=== PATIENT | male | born 1945 | race Caucasian/White ===

== ENCOUNTER → 2021-11-23 | Outpatient (CLI) | payer MEDICARE, SELFPAY ==
--- NOTE | 2021-11-23 07:41 | US_ITS ---
STUDY: ABDOMINAL ULTRASOUND REASON FOR EXAM: Male, 76 years old. Epigastric pain. TECHNIQUE: Transabdominal ultrasound was performed with real-time and static sierra scale imaging. TECHNICAL QUALITY: Adequate. COMPARISON: None. FINDINGS: Liver: The liver measures 14.1 cm. There is normal echogenicity of the liver. The bile ducts are within normal limits. There is hepatic color flow. The direction of portal flow is hepatopetal. There is no demonstrated mass lesion. Gallbladder: Normal distended gallbladder. The gallbladder wall measures 1.1 mm. There is a negative sonographic Jimenez''s sign. There is no pericholecystic fluid. There are no gallstones. Common Bile Duct (C.B.D.): The common bile duct measures 7.2 mm. Pancreas: Normal size of the head, body and tail of the pancreas. There is normal echogenicity of the pancreas. There is no demonstrated pancreatic mass or cyst. Spleen: Normal size of the spleen. The spleen measures 8.6 cm. Right Kidney: Normal size of the right kidney. The right kidney measures 8.5 cm. Normal renal cortex. The right cortex measures 1.0 cm. There is no demonstrated renal mass or cyst. There is no right hydronephrosis. Left Kidney: Normal size of the left kidney. The left kidney measures 8.7 cm. Normal renal cortex. The left cortex measures 1.4 cm. There is no demonstrated renal mass or cyst. There is no left hydronephrosis. Aorta: Atherosclerotic changes of the aorta without aneurysm. I.V.C.: The IVC is patent. There is no ascites. In the left lower quadrant, adjacent to the umbilicus, is a 3.2 x 4.0 x 2.7 cm hypoechoic focus with through transmission. There is evidence of peripheral and internal blood flow. Along its posteroinferior margin, there is 1.7 x 1.6 x 1.1 cm cyst. A US/Abdomen Complete IMPRESSION: 1. Normal abdominal ultrasound examination. 2. Incidental finding of at least partially cystic mass in the left lower quadrant mesenteric fat of uncertain etiology. Follow-up with contrast CT is recommended. Electronically Signed: Marvin Dover DO at 16:36 EDT ,
== END | disposition home or self-care (01) ==
PROVIDERS: PCP Student in an Organized Health Care Education/Training Program
DX: R10.13 Epigastric pain (principal)
CPT/HCPCS: 76700

== ENCOUNTER → 2021-11-25 | Outpatient (CLI) | payer MEDICARE, SELFPAY ==
--- NOTE | 2021-11-25 08:02 | CT_ITS ---
EXAM: CT LEFT UPPER EXTREMITY WITHOUT INTRAVENOUS CONTRAST, SHOULDER CLINICAL INDICATION: LEFT SHOULDER OSTEOARTHRITIS TECHNIQUE: Helically acquired images were obtained of the left shoulder without intravenous contrast. 2-D reformats were performed by the technologist. CTDIvol = ( 22.11 ) mGy, DLP = ( 530.18 ) mGycm This CT exam was performed using one or more of the following dose reduction techniques: automated exposure control, adjustment of the mA and/or kV according to patient size, and/or use of iterative reconstruction technique. This report was created using Doorman report Insightera technology. COMPARISON: None. FINDINGS: Moderate centrilobular emphysema. No consolidation, pleural effusion or pneumothorax. End stage osteoarthrosis involving the left glenohumeral joint. Superior subluxation humeral head relative to the glenoid with marked narrowing of the subacromial space raises concern for rotator cuff tearing. This can be better assessed with MRI. No significant arthritic changes of the left acromioclavicular joint. No acute or healing fracture or malalignment No unusual lytic or sclerotic lesions of bone. No soft tissue hemorrhage or hematoma. CT/Extremity Upper without Contra IMPRESSION: End-stage left glenohumeral joint osteoarthrosis. Electronically Signed: Gustavo Steven MD at 4:10 EDT ,
== END | disposition home or self-care (01) ==
PROVIDERS: PCP Student in an Organized Health Care Education/Training Program; Referring Provider Student in an Organized Health Care Education/Training Program; Visit Provider Student in an Organized Health Care Education/Training Program
DX: M19.112 Post-traumatic osteoarthritis, left shoulder (principal); M25.512 Pain in left shoulder
CPT/HCPCS: 73200

== ENCOUNTER 2021-12-16 12:43 | Observation (INO) | payer MEDICARE, SELFPAY ==
[2021-12-06 11:26] LABS: Absolute Lymphocyte Count 3.24 X10^3/uL (0.83-4.51); Absolute Neutrophil Count 5.6 X10^3/uL (2.0-7.7); Basophil# 0.07 X10^3/uL; Basophil% 0.7 % (0-1); Eosinophil# 0.13 X10^3/uL; Eosinophils% 1.3 % (0-5); Hematocrit 42.2 % (40-54); Hemoglobin 13.9 g/dL (13.0-16.5); Lymphocyte # 3.24 X10^3/ul (0.83-4.51); Lymphocyte % 33.2 % (19-41); Mean Corp Hgb Conc 32.9 g/dL (32-36); Mean Corpuscular Hgb 34.2 pg (27.0-32.0); Mean Corpuscular Volume 103.7 fL (80-94); Mean Platelet Vol. 9.7 fl (6.2-12.0); Monocyte# 0.66 X10^3/uL; Monocyte% 6.8 % (0-10); NRBC Flagged by Analyzer 0 % (0-5); Neutrophil # 5.63 X10^3/uL (2.7-7.7); Neutrophil % 57.7 % (47-70); Platelet Count 250 K/mm3 (150-450); RBC Distribution Width CV 12.5 % (11.6-14.6); RBC Distribution Width SD 48.2 fl (35.1-43.9); Red Blood Count 4.07 M/mm3 (4.6-6.2); White Blood Count 9.8 K/mm3 (4.4-11.0)
[2021-12-06 11:59] LABS: AST(SGOT) 17 U/L (15-37); Alanine Aminotransfer ALT/SGPT 23 U/L (16-61); Albumin, Serum 3.8 g/dL (3.2-5.0); Alkaline Phosphatase 90 U/L (45-117); Bilirubin, Direct 0.21 mg/dL (0.00-0.30); Globulin 3.6 g/dL (2.2-4.2); International Normalized Ratio 1.1; Magnesium 2.1 mg/dL (1.6-2.6); Protein, Total 7.4 g/dL (6.4-8.2); Prothrombin Time (Protime)PT. 14.2 SECONDS (11.7-14.9)
[2021-12-06 12:00] LABS: Anion Gap 8 (5-15); BUN 14 mg/dL (7-18); BUN/Creat Ratio 11.3 RATIO (10-20); Calcium,Total 9.4 mg/dL (8.5-10.1); Chloride 106 mmol/L (98-107); Creatinine, Serum 1.24 mg/dL (0.70-1.30); EST Glomerular Filtration Rate 60 mL/min (>60); Est Glom Filt Rate - Afr Amer 73 mL/min (>60); Glucose 127 mg/dL (74-106); Partial Thromboplast Time 36.1 Seconds (24.1-36.2); Potassium 3.9 mmol/L (3.5-5.1); Sodium Level 143 mmol/L (136-145)
[2021-12-16] VITALS (20 sets, daily range): BP systolic 112–147; BP diastolic 70–96; PULSE 75–101; RESP 14–22; TEMP 36.2–37.2; O2SAT 91–98; BMI 25.2
[2021-12-16] MEDS: Acetaminophen 500 MG Tablet 1000 MG PO ×3 (07:51→22:13)
[2021-12-16] MEDS: Gabapentin 600 MG Tablet PO (07:51)
[2021-12-16] MEDS: Lactated Ringers 1,000 ML 999 ML IV (07:52)
[2021-12-16] MEDS: Ipratropium/Albuterol Sulfate 3 ML AMPUL.NEB INHALATION (07:58)
[2021-12-16] MEDS: Magnesium 1 GM over 15 mins IV (08:01)
[2021-12-16 08:15] LABS: Bedside Glucose 68 mg/dL (74-106)
--- NOTE | 2021-12-16 09:45 | BON_PTH ---
PATIENT: NENITA JIMENEZ LOC: MS3 U#:[id number] AGE/SX: 76/M [place] [facility] [place]16/[address]: Dr. Francisco J Sarmiento DO : 1945 BED: 1 DIS: 12/17/2021 SPEC #: [id number] RECD: 12/16/21 16:22 STATUS: ITALIA REQ #: [id number] BETO: 12/16/21 09:[address]: Cristian Garrison DEPT: SURGICAL PATHOLOGY RECD BY: Diane Cooney ENTERED: 12/17/21 07:54 SP TYPE: Bone OTHR DR: DO Dr. Francisco J Guzman DO Dr. Nicholas Spittle, DO Tissues: Humerus, NOS Procedures: Decalcification bone/plaque Surgery Specimen Level IV Comments: @ Ordering doctor for DEC edited from to @ link NOLAN at 12/17/21 1239 @ Ordering doctor for SUIV edited from to @ link NOLAN at 12/17/21 1239 @ Submitting doctor edited from to @ link NOLAN at 12/17/21 1239 HEADER OPERATION: ERAS, total shoulder replacement, reverse PRE-OP DIAGNOSIS: Osteoarthritis left shoulder TISSUE SUBMITTED: Left humeral head MICROSCOPIC DIAGNOSIS Left humeral head, total shoulder replacement: Humeral head with degenerative osteoarthritic changes. /SJ 12/22/21 MICROSCOPIC DESCRIPTION Slides are reviewed. GROSS DESCRIPTION Received is one container labeled with the patient's name and designated left humeral head. The specimen consists of a humeral head measuring 5.5 x 5 x 2 cm. The articular surface shows areas of erosion, eburnation and osteophyte formation. No soft tissue is identified. Skiing Instructor sections are submitted in one cassette after decalcification. / YASMANI:ese 12/17/2021 TC:5 CPT: 30476, 49347
[2021-12-16] MEDS: Lactated Ringers 1,000 ML 125 ML IV ×2 (10:00→13:27)
[2021-12-16] MEDS: dexAMETHasone 10 MG/ML Vial IV (10:10)
[2021-12-16] MEDS: Cefazolin 2 GM in 0.9% Normal Saline 100 ML IV (10:10)
[2021-12-16] MEDS: TXA 1000mg in NS100 100ml (IVPB at Incision) 660 MG IV (10:20)
[2021-12-16 11:05] LABS: Bedside Glucose 101 mg/dL (74-106)
[2021-12-16] MEDS: TXA 1000mg in NS100 100ml (IVPB at Closure) 660 MG IV (11:46)
--- NOTE | 2021-12-16 12:26 | PCM.OPRPT ---
Report of Operation Date of Procedure: 12/16/21 Description of Surgical Findings:: Preoperative diagnosis: Left shoulder rotator cuff arthropathy Postoperative diagnosis: Left shoulder rotator cuff arthropathy Procedure: Left reverse total shoulder arthroplasty Surgeon: Cristian Garrison DO System Operation Superintendent: Taryn Stewart PA-C Anesthesia: General endotracheal Cellophane Press Operator: Lemuel Perry CRNA Complications: None apparent Drains: None Estimated blood loss: 200 cc Urinary output: None IV fluids: 800 cc crystalloid Specimens: None Surgical implants: Tornier Aequalis PerFORM+ reversed full wedge augment baseplate 29 mm diameter, standard glenosphere cobalt chrome 39 mm diameter, Tornier perform inlay stem size #2, +0 size number 2 39 mm diameter polyethylene insert, 25 mm central screw. Peripheral screws 26, 22, 14, and 22 mm. Surgical indications: This is a 76-year-old male with persistent left shoulder pain. He did have worsening symptoms over the last several months. X-rays revealed rotator cuff arthropathy. 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 I recommended a reverse shoulder arthroplasty. We obtained a preoperative CT scan for planning. The risks, benefits, alternatives the procedure was reviewed with the patient and he agreed to proceed. Risks included but were not limited to bleeding, infection, instability, loss of life or limb, risk of anesthesia, neurovascular injury, persistent pain, stiffness, prolonged immobilization, need for additional surgery, loosening of orthopedic hardware. He expressed understanding and wished to proceed with surgery. Surgical details: Patient arrived to [facility] morning of the procedure and was greeted by the same day surgery staff. Prior to his procedure, I greeted the patient in the preoperative holding area I identified the patient by name, record number, and date of . Informed consent was confirmed. The operative extremity was marked. All questions were answered to patient satisfaction. Patient was also seen by anesthesia staff. Interscalene block was deemed contraindicated by anesthesia staff due to history of COPD. At time of his procedure, patient was brought to the operative suite and positioned supine on a standard table with a beachchair attachment. General anesthesia was induced after all bony prominences were well-padded. Endotracheal tube was placed. After adequate anesthesia and securing the tube, we prepared the patient to be positioned in the beachchair position. A well-padded head of transport logistics was applied. The nonoperative extremity was placed in a well arm bermudez. He was then brought into the beachchair position after we confirmed an appropriate blood pressure. We then spun the bed 45 degrees. The operative extremity was then prepared. In the butterfly wing of the bed was removed and a well-padded torso strap was applied to secure the patient to the bed. The operative extremity was now free. We then prepped and draped the left upper extremity in normal, sterile orthopedic fashion. We then performed a timeout with all parties in attendance in agreement with the side, site, and operation be performed. 2 g Ancef was administered prior to incision by anesthesia staff, as well as 1 g TXA IV. No concerns were voiced and we elected to proceed. I first marked a standard deltopectoral incision just lateral to the coracoid process in line with the long axis of the humerus. Skin was sharply incised with 10 blade scalpel. I then dissected bluntly through the subcutaneous layers and found the fat stripe between the deltoid and pectoralis major. The cephalic vein was then identified and protected. It was retracted laterally with the deltoid. I then bluntly dissected underneath the deltoid with a Mora elevator. Fuad retractor was placed. The upper 1 cm of the pectoralis major was released. I then identified the long head of the biceps tendon in the intertubercular groove. This was tenodesed in situ with #2 FiberWire. I then amputated the biceps proximal to the tenodesis site and followed the tendon to the supraglenoid tubercle where it was amputated. This identified the lesser and greater tuberosities. The supraspinatus was completely torn and retracted with an exposed greater tuberosity. I then performed a subscapularis peel while rotating the humerus externally. I tagged the subscapularis for possible repair later with a tagging suture. I then made a anatomic neck cut of the cartilaginous surface of the humeral head. Sizing plate for a size #2 stem was utilized to determine appropriate reaming size. A central pin was placed engaging the lateral cortex of the humerus. A size #2 reamer was used to ream the humeral metaphysis and prepare for the inlay stem. A canal finding reamer was utilized prior to sequential broaching to a size #2 short stem with excellent rotational and axial purchase in the humerus. I remove the broach handle left the size #[address] I then subluxed the humerus posterior to the glenoid. I then placed retractors around the posterior and anterior glenoid to expose the glenoid. Glenoid labrum was removed with Bovie cautery protecting the axillary nerve. We then used the custom guide from [employer] to position our centering pin, exiting approximately 25 mm from the joint surface along the anterior scapula. Guide was removed and pin was analyzed and compared to preoperative planning. It appeared to be in appropriate position. The augmented wedge reamer was then placed to sit flush with the [place] glenoid. Rotation of the wedge reamer appeared consistent with preoperative planning. This was reamed about 2 mm deep to cortical bone. We then remove the reamer and used the cannulated drill for the central 25 mm screw. Pin was removed. Post and baseplate was assembled on the back table. We then inserted the baseplate and central screw the assembled baseplate to an appropriate depth and rotation of the wedge to sit flush with the prepared glenoid surface. A Lynch was used to confirm depth. Cortical screws then were placed in the peripheral holes with good purchase. The baseplate had excellent purchase and the entire scapula would rotate with rotation of the baseplate. We then impacted the 39 mm glenosphere with a standard eccentricity and tightened the locking screw mechanism. We then removed retractors and turned our attention back to the humerus. I placed a standard +0 polyethylene insert. I then reduced the shoulder. There was excellent range of motion and stability in all planes of motion. We selected this as our final size. We removed trials from the humerus after final dislocation. I copiously irrigated the canal. Broach was placed on hand and then impacted to an appropriate depth. Final +6 mm polyethylene insert was placed. Final reduction was then performed. I then copiously irrigated the wound with irrisept and normal saline solution. Hemostasis was excellent. The axillary nerve was visualized and appeared to be intact. The subscapularis was then identified with a tagging suture. Repair would have been likely under undue tension and likely failed. I elected to not perform a subscapularis repair. We then copiously irrigated the wound with sterile Betadine and normal saline solution. Due to no interscalene block preoperatively, a periarticular and subcutaneous block was administered with 100 cc total of a joint pain solution containing ropivacaine 200 mg, epinephrine 0.6 mg, Toradol 30 mg, and morphine sulfate 5 mg. We reapproximated the interval with 0 Vicryl suture. Subcutaneous layers were reapproximated with 2 -0 Vicryl suture. Skin was finally running V-Loc 3-0 Monocryl suture and Dermabond. A sterile silver Mepilex dressing was applied. Patient was then placed in a simple sling. Patient tolerated procedure well without complication. He was positioned back in the supine position extubated in the operative suite. [place] and subsequently to PAC[place] in stable condition. Need for skilled assistant golf professional: Taryn Stewart PA-C was critical to the outcome of the case. During the course of the procedure the physician assistant golf professional played a vital role. Her intimate knowledge of my steps in the procedure aided in safe and expedient completion of the procedure. The PA played a vital role in positioning particularly in obtaining the appropriate positioning. The PA was also vital in the retraction of soft tissues during the exposure and protecting vital structures. The PA was also vital and protecting soft tissues during times of bony cuts. She also played a vital role in closure with my direct supervision. The PA was also important during reduction and dislocation of the joint and trials intraoperatively. Intraoperative medications: 2 g Ancef IV, 1 g TXA IV x2 Post Operative Plan: Weightbearing: Nonweightbearing left upper extremity, okay for pendulums. Range of motion of wrist elbow and hand as tolerated. Antibiotics: 2 g Ancef IV prior to incision, 24 hours IV antibiotics postoperatively DVT Prophylaxis: Aspirin enteric-coated 81 mg twice daily starting tomorrow Mack: None Dressing: Maintain silver dressing x7 days. Okay to shower dressing on started on day 4 X-Rays: 2 weeks postop in the office Pain Medication: Oxycodone Rx upon discharge Follow-up: 2 weeks post-operatively with me in the office
--- NOTE | 2021-12-16 12:49 | RAD_ITS ---
STUDY: X-RAY - LEFT SHOULDER REASON FOR EXAM: Male, 76 years old. Post op -- AP and Lateral X-Ray of operative shoulder in PACU TECHNIQUE: 2 view(s) of the shoulder. COMPARISON: None. FINDINGS: The patient is status post left total shoulder replacement. Postoperative soft tissue changes. RAD/Shoulder min 2 Views IMPRESSION: Status post left total shoulder replacement. Postoperative soft tissue changes. Electronically Signed: Ricky Hickman MD at 13:20 EST ,
--- NOTE | 2021-12-16 15:52 | PCM.PN.HOSP ---
Subjective Subjective Pt feeling well today post shoulder replacement. No shortness of breath. Objective Data Objective Data Vital Signs: Vital Signs Temp Pulse Resp BP Pulse Ox O2 Del Method O2 Flow Rate 36.8 C 101 H 16 141/89 H 96 Nasal Cannula 2 12/16/21 15:07 12/16/21 15:07 12/16/21 15:07 12/16/21 15:07 12/16/21 15:07 12/16/21 15:07 12/16/21 15:07 Oxygen Flow Rate (L/min) 2 Oxygen Delivery Method Nasal Cannula Weight: 68.9 kg Body Mass Index (BMI) 25.2 Intake & Output: Intake and Output for Last 24 Hours 12/14/21 12/15/21 12/16/21 23:59 23:59 23:59 Intake Total 1500.75 / 1500.75 Balance 1500.75 / 1500.75 Lab / Micro Data Result Diagrams: 12/06/21 11:08 12/06/21 11:08 Labs: Laboratory Results - last 24 hr 12/16/21 07:27: POC Glucose 68 L 12/16/21 10:43: POC Glucose 101 Micro: Microbiology 12/06/21 11:08 Swab (Method) Nasal Screen MRSA/MSSA - Final Radiography Diagnostic Testing: Radiology Impression Shoulder X-Ray 12/16/21 12:49 IMPRESSION: Status post left total shoulder replacement. Postoperative soft tissue changes. Electronically Signed: Ricky Hickman MD at 13:20 EST Reading Location ID and State: [address] [place] [address] , Service support , Physical Exam Const alert and no apparent distress Neck no lymphadenopathy Resp normal respiratory effort, no retractions, no use of accessory muscles and clear to auscultation bilaterally Cardio regular rate, regular rhythm, S1 normal heart sound and S2 normal heart sound GI normal to inspection, nondistended, normoactive bowel sounds, soft to palpation, non-tender and non-distended Extremity normal to inspection Assessment & Plan Assessment/Plan (1) COPD (chronic obstructive pulmonary disease): PLAN: Stable at this time. On oxygen. Wean oxygen as tolerated. Continue with bronchodilators PLAN: Plan Aortic stenosis: Patient had an echocardiogram on December 06 that was noted to be mild to moderate stenosis. Patient follow-up with cardiology as outpatient. Obstructive sleep apnea: Not on CPAP as he was unable to tolerate the mask. Hypertension: Stable. Continue with losartan and furosemide Status post left shoulder replacement: Management per orthopedics. Thank you for the consult. The hospital service will review data on the . If stable, then the hospital service may sign off at that time. Charges/Coding Visit Charges Inpatient E&M: 00755 Subs Hosp L2
[2021-12-16] MEDS: Lactated Ringers 1,000 ML 75 ML IV (16:23)
[2021-12-16] MEDS: Pantoprazole Sodium 40 MG Tablet PO ×2 (16:32→22:13)
[2021-12-16] MEDS: oxyCODONE 5 MG Tablet PO ×2 (16:32→22:12)
[2021-12-16] MEDS: Cefazolin 1 GM/50 ML BAG IV (18:12)
[2021-12-16] MEDS: Albuterol 2.5 MG/3 ML VIAL.NEB. INHALATION (19:14)
[2021-12-16] MEDS: Budesonide Respules 0.5 MG/2 ML AMPUL.NEB. INHALATION (19:14)
[2021-12-16] MEDS: Senna/Docusate Sodium 1 Tablet 2 TABLET PO (22:14)
[2021-12-17] VITALS (8 sets, daily range): BP systolic 109–144; BP diastolic 77–83; PULSE 82–94; RESP 14–21; TEMP 36.6–37; O2SAT 95–98
[2021-12-17] MEDS: Cefazolin 1 GM/50 ML BAG IV (01:48)
[2021-12-17] MEDS: Albuterol 2.5 MG/3 ML VIAL.NEB. INHALATION (02:19)
[2021-12-17 05:40] LABS: Hematocrit 40.7 % (40-54); Hemoglobin 12.9 g/dL (13.0-16.5); Mean Corp Hgb Conc 31.7 g/dL (32-36); Mean Corpuscular Hgb 33.3 pg (27.0-32.0); Mean Corpuscular Volume 105.2 fL (80-94); Mean Platelet Vol. 10.2 fl (6.2-12.0); Platelet Count 271 K/mm3 (150-450); RBC Distribution Width CV 13.2 % (11.6-14.6); RBC Distribution Width SD 50.6 fl (35.1-43.9); Red Blood Count 3.87 M/mm3 (4.6-6.2); White Blood Count 16.5 K/mm3 (4.4-11.0)
[2021-12-17 05:58] LABS: Anion Gap 10 (5-15); BUN 18 mg/dL (7-18); Calcium,Total 8.7 mg/dL (8.5-10.1); Chloride 103 mmol/L (98-107); Creatinine, Serum 1.29 mg/dL (0.70-1.30); EST Glomerular Filtration Rate 57 mL/min (>60); Est Glom Filt Rate - Afr Amer 69 mL/min (>60); Estimated Creatinine Clearance 41.72 ml/min; Glucose 88 mg/dL (74-106); Potassium 4.2 mmol/L (3.5-5.1); Sodium Level 138 mmol/L (136-145)
[2021-12-17] MEDS: Acetaminophen 500 MG Tablet 1000 MG PO (06:48)
--- NOTE | 2021-12-17 06:55 | PCM.PN.ORT ---
Subjective Subjective Patient seen and examined. Complains of slightly worse pain today but is controlled with current pain regimen. Denies fevers or chills, nausea vomiting, chest pain or shortness of breath. Feels he is able to go home today. Objective Data Objective Data Vital Signs: Vital Signs Temp Pulse Resp BP Pulse Ox O2 Del Method O2 Flow Rate 98.6 F 84 18 144/77 H 95 Room Air 2 12/17/21 06:30 12/17/21 06:30 12/17/21 06:30 12/17/21 06:30 12/17/21 06:30 12/17/21 06:30 12/17/21 03:00 Oxygen Flow Rate (L/min) 2 Oxygen Delivery Method Room Air Weight: 151 lb 14.376 oz Body Mass Index (BMI) 25.2 Intake & Output: Intake and Output for Last 24 Hours 12/15/21 12/16/21 12/17/21 23:59 23:59 23:59 Intake Total 1907.00 / 1907.00 991.25 / 991.25 Output Total 800 / 800 825 / 825 Balance 1107.00 / 1107.00 166.25 / 166.25 Lab / Micro Data Result Diagrams: 12/17/21 04:34 12/17/21 04:34 Labs: Laboratory Results - last 24 hr 12/16/21 07:27: POC Glucose 68 L 12/16/21 10:43: POC Glucose 101 12/17/21 04:34: WBC 16.5 H, RBC 3.87 L, Hgb 12.9 L, Hct 40.7, MCV 105.2 H, MCH 33.3 H, MCHC 31.7 L, RDW Std Deviation 50.6 H, RDW Coeff of Loyd 13.2, Plt Count 271, MPV 10.2 12/17/21 04:34: Sodium 138, Potassium 4.2, Chloride 103, Carbon Dioxide 25.0, Anion Gap 10, BUN 18, Creatinine 1.29, Estim Creat Clear Calc 41.72, Est GFR (MDRD) Af Amer 69, Est GFR (MDRD) Non-Af 57 L, BUN/Creatinine Ratio 14.0, Glucose 88, Calcium 8.7 Micro: Microbiology 12/06/21 11:08 Swab (Method) Nasal Screen MRSA/MSSA - Final Radiography Diagnostic Testing: Radiology Impression Shoulder X-Ray 12/16/21 12:49 IMPRESSION: Status post left total shoulder replacement. Postoperative soft tissue changes. Electronically Signed: Ricky Hickman MD at 13:20 EST , Physical Exam Narrative General - A&Ox3, NAD. VSS/AF. Left upper Extremity - SILT & 5/5 in radial, ulnar, musculocutaneous, axillary, and median nerve distributions. Radial, ulnar pulses 2+. Compartments soft and compressible. BCR in finger tips. Incisional dressing C/D/I. Assessment & Plan Assessment/Plan (1) Osteoarthritis of left shoulder due to rotator cuff injury: PLAN: POD#1 s/p left reverse shoulder arthroplasty -Patient doing well this morning. Plan for discharge home today. Follow-up in 2 weeks. - Pain control - Medicine following for medical management - OT-nonweightbearing left upper extremity, okay for gentle pendulums at home, range of motion of elbow wrist and hand. - DVT PPX -enteric-coated aspirin 81 mg twice daily, AMELIE Wynne - Case management - D/C planning
[2021-12-17] MEDS: Ipratropium/Albuterol Sulfate 3 ML AMPUL.NEB INHALATION ×2 (06:58→12:59)
[2021-12-17] MEDS: Budesonide Respules 0.5 MG/2 ML AMPUL.NEB. INHALATION (06:59)
--- NOTE | 2021-12-17 07:02 | PCM.DC.SUM ---
Providers Date of Admission: 12/16/21 Primary Care Physician: Dr. 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 Plan for discharge home today. Follow-up in 2 weeks. - Pain control - Medicine following for medical management - OT-nonweightbearing left upper extremity, okay for gentle pendulums at home, range of motion of elbow wrist and hand. - DVT PPX -enteric-coated aspirin 81 mg twice daily, AMELIE Wynne - Case management - D/C planning Medications at Discharge Home Medications albuterol 90 mcg/actuation aerosol inhaler 90 mcg inhalation PRN PRN SOB 12/02/21 albuterol sulfate 1.25 mg/3 mL solution for nebulization 1.25 mg inhalation TID 12/02/21 ascorbic acid (vitamin C) 500 mg tablet (Vitamin C) 500 mg PO DAILY 12/02/21 budesonide-formoterol HFA 160 mcg-4.5 mcg/actuation aerosol inhaler (Symbicort) 2 puff inhalation BID 12/02/21 cholecalciferol (vitamin D3) 50 mcg (2,000 unit) capsule (Vitamin D3) 50 mcg PO DAILY 12/02/21 cyanocobalamin (vitamin B-12) 100 mcg/mL injection solution 100 mcg QMONTH 12/02/21 furosemide 20 mg tablet (Lasix) 20 mg PO DAILY 12/02/21 losartan 50 mg tablet 50 mg PO DAILY 12/02/21 magnesium chloride 64 mg tablet,extended release 64 mg PO DAILY 12/02/21 montelukast 10 mg tablet (Singulair) 10 mg PO DAILY 12/02/21 pantoprazole 40 mg tablet,delayed release 40 mg PO BID 12/02/21 sertraline 25 mg tablet 25 mg PO DAILY 12/02/21 tamsulosin 0.4 mg capsule (Flomax) 0.8 mg PO DAILY 12/02/21 vitamin B12 500 mcg-folic acid 400 mcg tablet 1 tab PO DAILY 12/02/21 zinc 50 mg tablet 50 mg PO DAILY 12/02/21 acetaminophen 500 mg tablet 1,000 mg PO Q8 14 days #84 tabs 12/17/21 aspirin 81 mg tablet,delayed release 81 mg PO BID 14 days #28 tabs 12/17/21 ipratropium 0.5 mg-albuterol 3 mg (2.5 mg base)/3 mL nebulization soln ml 12/17/21 oxycodone 5 mg tablet 5 - 10 mg PO Q4H PRN PRN Pain Score 4-10 7 days #42 tabs 12/17/21 sennosides 8.6 mg-docusate sodium 50 mg tablet (Stool Softener-Stimulant Laxative) 2 tab PO BID 7 days #28 tabs 12/17/21 Hospital Course Summary of Care Provided Hospital Course: Patient underwent uncomplicated left reverse shoulder arthroplasty 12/16/2021. He was placed in observation overnight for early convalescence and medical monitoring. He did well postoperatively without apparent medical or surgical complication. He worked well with occupational therapy. His pain was adequately controlled. He was able be safely discharged home in stable condition on postoperative day #1. Physical Exam Narrative General - A&Ox3, NAD. VSS/AF. Left upper Extremity - SILT & 5/5 in radial, ulnar, musculocutaneous, axillary, and median nerve distributions. Radial, ulnar pulses 2+. Compartments soft and compressible. BCR in finger tips. Incisional dressing C/D/I. Weight / BMI Weight Weight: 151 lb 14.376 oz Body Mass Index (BMI) 25.2 ABG / Lab / Microbiology Data Result Diagrams: 12/17/21 04:34 12/17/21 04:34 Laboratory: Laboratory Results - last 24 hr 12/16/21 07:27: POC Glucose 68 L 12/16/21 10:43: POC Glucose 101 12/17/21 04:34: WBC 16.5 H, RBC 3.87 L, Hgb 12.9 L, Hct 40.7, MCV 105.2 H, MCH 33.3 H, MCHC 31.7 L, RDW Std Deviation 50.6 H, RDW Coeff of Loyd 13.2, Plt Count 271, MPV 10.2 12/17/21 04:34: Sodium 138, Potassium 4.2, Chloride 103, Carbon Dioxide 25.0, Anion Gap 10, BUN 18, Creatinine 1.29, Estim Creat Clear Calc 41.72, Est GFR (MDRD) Af Amer 69, Est GFR (MDRD) Non-Af 57 L, BUN/Creatinine Ratio 14.0, Glucose 88, Calcium 8.7 Microbiology: Microbiology 12/06/21 11:08 Swab (Method) Nasal Screen MRSA/MSSA - Final Radiography Diagnostic Testing: Radiology Impression Shoulder X-Ray 12/16/21 12:49 IMPRESSION: Status post left total shoulder replacement. Postoperative soft tissue changes. Electronically Signed: Ricky Hickman MD at 13:20 EST , Meaningful Use Info Meaningful Use Diagnoses (Choose all that apply): None applicable Discharge Plan Admission Admit Date/Time: 12/16/21 13:40 Primary Reason for Your Visit: Left shoulder replacement Attending Provider: Francisco J Sarmiento Primary Care Provider: Oscar Ramirez Consulting Providers: Francisco J Sarmiento ; Cristian Garrison Instructions Additional Instructions / Restrictions: See preprinted instructions from your surgeons office. Discharge Orders/Prescriptions Prescriptions: New sennosides-docusate sodium [Stool Softener-Stimulant Laxat] 8.6-50 mg Tablet 2 tab PO BID 7 Days Qty: 28 0RF aspirin 81 mg Tablet,Delayed Release (Dr/Ec) 81 mg PO BID 14 Days Qty: 28 0RF acetaminophen 500 mg Tablet 1,000 mg PO Q8 14 Days Qty: 84 0RF oxycodone 5 mg Tablet 5 - 10 mg PO Q4H PRN PRN (Reason: Pain Score 4-10) 7 Days Qty: 42 0RF Continued losartan 50 mg Tablet 50 mg PO DAILY albuterol sulfate 1.25 mg/3 mL Solution For Nebulization 1.25 mg INHALATION TID cyanocobalamin (vitamin B-12) 100 mcg/mL Solution 100 mcg QMONTH magnesium chloride 64 mg Tablet Extended Release 64 mg PO DAILY ascorbic acid (vitamin C) [Vitamin C] 500 mg Tablet 500 mg PO DAILY tamsulosin [Flomax] 0.4 mg Capsule 0.8 mg PO DAILY pantoprazole 40 mg Tablet,Delayed Release (Dr/Ec) 40 mg PO BID sertraline 25 mg Tablet 25 mg PO DAILY montelukast [Singulair] 10 mg Tablet 10 mg PO DAILY zinc 50 mg Tablet 50 mg PO DAILY furosemide [Lasix] 20 mg Tablet 20 mg PO DAILY albuterol 90 mcg/actuation Aerosol 90 mcg INHALATION PRN PRN (Reason: SOB) budesonide-formoterol [Symbicort] 160-4.5 mcg/actuation Hfa Aerosol Inhaler 2 puff INHALATION BID cholecalciferol (vitamin D3) [Vitamin D3] 50 mcg (2,000 unit) Capsule 50 mcg PO DAILY vitamin L12-wbnit acid 500-400 mcg Tablet 1 tab PO DAILY Rx Instructions: administer with a meal ipratropium-albuterol 0.5 mg-3 mg(2.5 mg base)/3 mL solution for nebulization Label Comments: USE 1 VIAL IN NEBULIZER DIRECTED 4 TIMES A DAY Referrals / Follow Up: Oscar Ramirez DO [Primary Care Provider] - Cristian Garrison DO [Med Staff - Active Staff] - 12/29/21 Disposition Disposition (needs filled in before D/C Order can be placed): Home, Self Care
[2021-12-17] MEDS: Aspirin E.C. 81 MG Tablet PO (08:36)
[2021-12-17] MEDS: Losartan Potassium 50 MG Tablet PO (08:36)
[2021-12-17] MEDS: Furosemide 20 MG Tablet PO (08:37)
[2021-12-17] MEDS: Tamsulosin HCl 0.4 MG Capsule 0.8 MG PO (08:37)
[2021-12-17] MEDS: Magnesium Chloride 64 MG Delay Rel.Tablet PO (08:37)
[2021-12-17] MEDS: Sertraline 50 MG Tablet 25 MG PO (08:37)
[2021-12-17] MEDS: Montelukast 10 MG Tablet PO (08:37)
[2021-12-17] MEDS: Senna/Docusate Sodium 1 Tablet 2 TABLET PO (08:37)
[2021-12-17] MEDS: Pantoprazole Sodium 40 MG Tablet PO (08:38)
[2021-12-17] MEDS: oxyCODONE 5 MG Tablet PO (10:31)
--- NOTE | 2021-12-17 10:45 | CASEMGMT ---
RN CM Face to Face with patient for initial transition planning/care coordination assessment. RN CM introduced self and role at [facility]. Patient lying in bed, alert and oriented, at bedside. Patient willing to participate in assessment and is able to answer all questions appropriately. Care providers, pharmacy, and demographics verified. Patient wishes to discharge home, denies need for home health at this time. Patient states he has no further needs or concerns at this time. CM to follow for discharge planning needs that may arise. PCP: Ashley Specialists: rahul Garrison; Anand photogravure press operator Preferred Pharmacy: [facility] Insurance: [employer] Prescription Benefit: yes Living Will/HPOA: none LNOK: Living Arrangements: Patient lives with in a 2 story home. Patient was independent and able to ambulate stairs prior to surgery Transportation: self, DME/HHC: Patient cane, walker, and nebulizer. Patient denies previous HHC. Disposition Plan: Patient to discharge home with family support and follow-up plans in place. Ann STEVENS, RN, CM
== END 2021-12-17 13:42 | disposition home or self-care (01) ==
LOC: MS3 17:57 → SDC 12-17 09:33 → MS3 12-17 09:33
PROVIDERS: Anesthesiology; Admitting Provider Student in an Organized Health Care Education/Training Program; PCP Student in an Organized Health Care Education/Training Program; Referring Provider Student in an Organized Health Care Education/Training Program; Visit Provider Internal Medicine
PROC: (CPT 23472; principal; 2021-12-16 09:15)
DX: M19.112 Post-traumatic osteoarthritis, left shoulder (principal); J43.9 Emphysema, unspecified; S46.002S Unspecified injury of muscle(s) and tendon(s) of the rotator cuff of left shoulder, sequela; Z79.899 Other long term (current) drug therapy; I10 Essential (primary) hypertension; G47.33 Obstructive sleep apnea (adult) (pediatric); Z86.16 Personal history of COVID-19; Z87.891 Personal history of nicotine dependence; Z79.51 Long term (current) use of inhaled steroids; K21.9 Gastro-esophageal reflux disease without esophagitis; Z86.79 Personal history of other diseases of the circulatory system; Z86.2 Personal history of diseases of the blood and blood-forming organs and certain disorders involving the immune mechanism; R06.02 Shortness of breath
CPT/HCPCS: 23472; 01638; 36415; 73030; 80048; 80076; 82962; 83735; 85025; 85027; 85610; 85730; 87081; 88305; 88311; 94640; 96361; 96365; 96366; 97165; 97535; 99218; 99251; C1776; J7120; G0378; G0463; J2405; J3475